=== PATIENT | male | born 1970 | race Caucasian/White ===

== ENCOUNTER 2016-12-03 03:05 | Emergency (ER) | payer SELFPAY ==
[~2016-12-03] VITALS: Ht 182.9 cm; Wt 72.0 kg
[2016-12-03 03:09] VITALS: BP 202/117; PULSE 143; RESP 20; TEMP 98.8; O2SAT 83
[2016-12-03] MEDS ORDERED: SODIUM CHLOR 0.9% 1000 ML INJ 1,000 ML IV ONE (03:17)
--- NOTE | 2016-12-03 03:21 | PD ---
HPI Chief Complaint: OD/ Ingestion Time Seen by Provider: 03:17 Travel History International Travel<30 days: No Contact w/Intl Traveler<30days: No Traveled to known affect area: No History of Present Illness HPI This is a 46-year-old male who presents to the emergency department having been found unresponsive by a friend. When EMS arrived the patient was blue and apneic. He did have a pulse. They started to bag him and administered Narcan at which point the patient regained consciousness and had a GCS of 15. Patient admits to drinking alcohol this evening but denies any drug use. He currently says he feels normal and denies any complaints. PFSH Past Medical History Medical History: Denies Significant Hx Past Surgical History Surgical History: No Previous Surgery Social History Alcohol Use: Yes Tobacco Use: Yes (1 PPD ) Substance Use: No (PT DENIES ) Allergies-Medications (Allergen,Severity, Reaction): Coded Allergies: No Known Allergies (Unverified , 12/03/16) Reported Meds & Prescriptions Reported Meds & Active Scripts Active No Active Prescriptions or Reported Medications Review of Systems ROS Limitations: Intoxication Physical Exam Narrative GENERAL: Smells of alcohol SKIN: Focused skin assessment warm and dry. HEAD: Atraumatic. Normocephalic. EYES: Pupils are dilated, equal and reactive. No injection or drainage. ENT: Moist mucous membranes NECK: Trachea midline. CARDIOVASCULAR: Tachycardic. No murmur appreciated. RESPIRATORY: Clear to auscultation. Breath sounds equal bilaterally. GASTROINTESTINAL: Abdomen soft, non-tender, nondistended. MUSCULOSKELETAL: No obvious deformities. NEUROLOGICAL: Awake and alert. No obvious cranial nerve deficits. Moving all extremities. PSYCHIATRIC: Appropriate mood and affect; insight and judgment normal. Data Data Last Documented VS Vital Signs Date Time Temp Pulse Resp B/P Pulse Ox O2 Delivery O2 Flow Rate FiO2 12/03/16 06:13 99 16 138/73 92 Room Air 12/03/16 03:17 6 12/03/16 03:09 98.8 Orders Electrocardiogram (12/03/16 03:17) Complete Blood Count With Diff (12/03/16 03:17) Comprehensive Metabolic Panel (12/03/16 03:17) Urinalysis - C+S If Indicated (12/03/16 03:17) Chest, Single Ap (12/03/16 03:17) Iv Access Insert/Monitor (12/03/16 03:17) Ecg Monitoring (12/03/16 03:17) Oximetry (12/03/16 03:17) Sodium Chloride 0.9% Flush (Ns Flush) (12/03/16 03:30) Sodium Chlor 0.9% 1000 Ml Inj (Ns 1000 M (12/03/16 03:17) Drug Screen, Random Urine (12/03/16 03:17) Alcohol (Ethanol) (12/03/16 03:17) Salicylates (Aspirin) (12/03/16 03:17) Tylenol (Acetaminophen) (12/03/16 03:17) Labs Laboratory Tests Test 12/03/16 03:25 White Blood Count 6.8 TH/MM3 Red Blood Count 4.94 MIL/MM3 Hemoglobin 17.0 GM/DL Hematocrit 48.3 % Mean Corpuscular Volume 97.8 FL Mean Corpuscular Hemoglobin 34.3 PG Mean Corpuscular Hemoglobin 35.1 % Concent Red Cell Distribution Width 13.8 % Platelet Count 187 TH/MM3 Mean Platelet Volume 7.3 FL Neutrophils (%) (Auto) 54.6 % Lymphocytes (%) (Auto) 35.0 % Monocytes (%) (Auto) 6.1 % Eosinophils (%) (Auto) 1.4 % Basophils (%) (Auto) 2.9 % Neutrophils # (Auto) 3.7 TH/MM3 Lymphocytes # (Auto) 2.4 TH/MM3 Monocytes # (Auto) 0.4 TH/MM3 Eosinophils # (Auto) 0.1 TH/MM3 Basophils # (Auto) 0.2 TH/MM3 CBC Comment DIFF FINAL Differential Comment Sodium Level 141 MEQ/L Potassium Level 3.8 MEQ/L Chloride Level 105 MEQ/L Carbon Dioxide Level 25.3 MEQ/L Anion Gap 11 MEQ/L Blood Urea Nitrogen 7 MG/DL Creatinine 0.94 MG/DL Estimat Glomerular Filtration 86 ML/MIN Rate Random Glucose 100 MG/DL Calcium Level 8.5 MG/DL Total Bilirubin 0.3 MG/DL Aspartate Amino Transf 356 U/L (AST/SGOT) Alanine Aminotransferase 320 U/L (ALT/SGPT) Alkaline Phosphatase 77 U/L Total Protein 8.2 GM/DL Albumin 4.2 GM/DL Salicylates Level 5.1 MG/DL Acetaminophen Level LESS THAN 2.0 MCG/ML Ethyl Alcohol Level 280 MG/DL MDM Medical Decision Making Medical Screen Exam Complete: Yes Emergency Medical Condition: Yes Interpretation(s) Afebrile, tachycardic, hypertensive, hypoxic on arrival No leukocytosis Transaminitis Alcohol level is 280 Chest x-ray: No acute process Differential Diagnosis Opiate intoxication, alcohol intoxication, overdose, aspiration pneumonia Narrative Course This is a 46-year-old male who presents to the emergency department having had an episode of unresponsiveness and respiratory failure witnessed by EMS. He responded to Narcan. I suspect the patient had a recreational opiate overdose. On arrival he was tachycardic and hypertensive with some hypoxia. He significantly improved in his ER stay. After IV hydration his pulse came down and with some pulmonary toilet his oxygen saturation improved to 92-94%. Patient was very eager to go home. He is awake, alert, able to answer questions appropriately and articulate his reasoning. I don't think I can keep him against his will. Patient will be discharged. Diagnosis Primary Impression: Opiate overdose Qualified Code: T40.601A - Opiate overdose, accidental or unintentional, initial encounter Patient Instructions: General Instructions Additional Instructions: Follow up with Anastasia Alexander in regards to psychiatric or substance related issues at: [address] [place] [address] Your liver is tests are abnormal. You should follow-up with a primary care physician regarding this as you could have hepatitis. Med/Other Pt SpecificInfo: No Change to Meds Scripts No Active Prescriptions or Reported Meds Disposition: 01 DISCHARGE HOME Condition: Stable Mindy Perez MD Dec 03, 2016 03:21
[2016-12-03 03:29] VITALS: O2SAT 83
[2016-12-03] MEDS ORDERED: SODIUM CHLORIDE 0.9% FLUSH 10 ML FLUSH IVF PRN (03:30)
[2016-12-03 03:47] LABS: AUTOMATED NEUTROPHIL # 3.7 TH/MM3 (1.8-7.7); BASOPHIL # 0.2 TH/MM3 (0-0.2); BASOPHIL % 2.9 % (0.0-2.0); EOSINOPHIL # 0.1 TH/MM3 (0-0.4); EOSINOPHIL % 1.4 % (0.0-4.0); HEMATOCRIT 48.3 % (39.0-51.0); HEMO FLAGS DIFF FINAL; LYMPHOCYTE # 2.4 TH/MM3 (1.0-4.8); MEAN CELL VOLUME 97.8 FL (80.0-100.0); MEAN CORPUSCULAR HEMOGLOBIN 34.3 PG (27.0-34.0); MEAN CORPUSCULAR HGB CONC 35.1 % (32.0-36.0); MONO % 6.1 % (0.0-8.0); NEUT % 54.6 % (16.0-70.0); PLATELET COUNT 187 TH/MM3 (150-450); RED BLOOD COUNT 4.94 MIL/MM3 (4.50-5.90); RED CELL DISTRIBUTION WIDTH 13.8 % (11.6-17.2); WHITE BLOOD COUNT 6.8 TH/MM3 (4.0-11.0)
--- NOTE | 2016-12-03 04:12 | RADRPT ---
EXAM DATE/TIME: 12/03/2016 03:17 [facility] COMPARISON: No previous studies available for comparison. INDICATIONS : Shortness of breath. MEDICAL HISTORY : None. SURGICAL HISTORY : None. ENCOUNTER: Initial ACUITY: 1 day PAIN SCORE: 0/10 LOCATION: Bilateral chest FINDINGS: The lungs are clear without infiltrate, nodule, or mass. There is no appreciable pleural effusion fo r technique. Heart and mediastinum are unremarkable. CONCLUSION: No acute cardiopulmonary disease. Ricky Mcduffie MD on December 03, 2016 at 4:11 Board Certified Radiologist. This report was verified electronically.
[2016-12-03 04:15] LABS: ACETAMINOPHEN LESS THAN 2.0 MCG/ML (10.0-30.0); ALT (GPT) 320 U/L (12-78); ANION GAP 11 MEQ/L (5-15); AST (GOT) 356 U/L (15-37); BICARBONATE 25.3 MEQ/L (21.0-32.0); BLOOD UREA NITROGEN 7 MG/DL (7-18); CHLORIDE 105 MEQ/L (98-107); GLOMERULAR FILTRATION RATE 86 ML/MIN (>89); POTASSIUM 3.8 MEQ/L (3.5-5.1); SODIUM (NA) 141 MEQ/L (136-145)
[2016-12-03 04:18] LABS: ALKALINE PHOSPHATASE 77 U/L (45-117); TOTAL BILIRUBIN ADULT 0.3 MG/DL (0.2-1.0)
[2016-12-03 05:44] VITALS: BP 198/104; PULSE 94; RESP 16; O2SAT 90
[2016-12-03 06:13] VITALS: BP 138/73; PULSE 99; RESP 16; O2SAT 92
--- NOTE | 2016-12-03 21:32 | EKG ---
Date Performed: 12/03/2016 Time Performed: 03:15:48 PTAGE: 46 years EKG: SINUS TACHYCARDIA BORDERLINE RIGHT AXIS DEVIATION Peaked T waves in lead V3, consider elect rolyte abnormality and Or early injury pattern. Clinical corrolation is suggested. ABNORMAL RHYTHM EC G NO PREVIOUS TRACING DOCTOR: Davey Echeverria Interpretating Date/Time 12/03/2016 21:31:43
== END 2016-12-03 06:23 | disposition home or self-care (01) ==
LOC: NEPE 03:05
DX: T40.601A Poisoning by unspecified narcotics, accidental (unintentional), initial encounter (principal); R00.0 Tachycardia, unspecified; R09.02 Hypoxemia; R94.31 Abnormal electrocardiogram [ECG] [EKG]; R79.89 Other specified abnormal findings of blood chemistry; F17.200 Nicotine dependence, unspecified, uncomplicated
CPT/HCPCS: 71010; 80053; 80307; 85025; 93005; 96360; 99285; J7030

== ENCOUNTER 2017-11-20 00:22 | Emergency (ER) | payer SELFPAY ==
[~2017-11-20] VITALS: Ht 182.9 cm; Wt 72.5 kg
[2017-11-20 00:34] VITALS: BP 157/97; PULSE 112; RESP 15; O2SAT 96
--- NOTE | 2017-11-20 03:31 | PD ---
HPI Chief Complaint: OD/ Ingestion Time Seen by Provider: 03:30 Travel History International Travel<30 days: No Contact w/Intl Traveler<30days: No Traveled to known affect area: No History of Present Illness HPI 47-year-old male presents to the emergency department after ingesting heroin with altered mentation. Patient received Narcan 0.4 mg IV with resumption of mentation and GCS of 15. Patient admits to drinking alcohol. Patient states she has never used heroin before. Denies other ingestants or complaints. [facility] Past Medical History Narrative Medical squamous cell CA; alcohol, tobacco and substance ue; nursing notes reviewed. Cancer: Yes (SQUAMOUS SMALL CELL CARCINOMA) Diabetes: No Diminished Hearing: No Tetanus Vaccination: Unknown Influenza Vaccination: No Past Surgical History Surgical History: No Previous Surgery Social History Alcohol Use: Yes (OCCAS) Tobacco Use: Yes (1.5 PPD ) Substance Use: Yes (HEROIN) Allergies-Medications (Allergen,Severity, Reaction): Coded Allergies: No Known Allergies (Unverified Adverse Reaction, Unknown, 11/20/17) Reported Meds & Prescriptions Reported Meds & Active Scripts Active No Active Prescriptions or Reported Medications Review of Systems Except as stated in HPI: all other systems reviewed are Neg Physical Exam Narrative GENERAL: Well developed well nourished male; gcs 15. SKIN: Warm and dry. HEAD: Atraumatic. Normocephalic. EYES: Pupils equal and round. No scleral icterus. No injection or drainage. ENT: No nasal bleeding or discharge. Mucous membranes pink and moist. NECK: Trachea midline. No JVD. CARDIOVASCULAR: Regular rate and rhythm. RESPIRATORY: No accessory muscle use. Clear to auscultation. Breath sounds equal bilaterally. GASTROINTESTINAL: Abdomen soft, non-tender, nondistended. Hepatic and splenic margins not palpable. MUSCULOSKELETAL: Extremities without clubbing, cyanosis, or edema. No obvious deformities. NEUROLOGICAL: Awake and alert. No obvious cranial nerve deficits. Motor grossly within normal limits. Five out of 5 muscle strength in the arms and legs. Normal speech. PSYCHIATRIC: Appropriate mood and affect; insight and judgment normal. Data Data Last Documented VS Vital Signs Date Time Temp Pulse Resp B/P (MAP) Pulse Ox O2 Delivery O2 Flow Rate FiO2 11/20/17 06:25 11/20/17 04:11 76 18 97 Room Air Orders Orders Complete Blood Count With Diff (11/20/17 01:30) Tylenol (Acetaminophen) (11/20/17 01:30) Alcohol (Ethanol) (11/20/17 01:30) Basic Metabolic Panel (Bmp) (11/20/17 01:30) Salicylates (Aspirin) (11/20/17 01:30) Drug Screen, Random Urine (11/20/17 01:30) Chest, Single Ap (11/20/17 ) Potassium Chloride (Kcl) (11/20/17 04:30) Ed Discharge Order (11/20/17 06:06) Labs Laboratory Tests Test 11/20/17 01:30 11/20/17 04:10 White Blood Count 9.1 TH/MM3 Red Blood Count 4.23 MIL/MM3 Hemoglobin 14.9 GM/DL Hematocrit 43.0 % Mean Corpuscular Volume 101.6 FL Mean Corpuscular Hemoglobin 35.1 PG Mean Corpuscular Hemoglobin Concent 34.6 % Red Cell Distribution Width 13.0 % Platelet Count 175 TH/MM3 Mean Platelet Volume 7.5 FL Neutrophils (%) (Auto) 82.5 % Lymphocytes (%) (Auto) 11.2 % Monocytes (%) (Auto) 5.8 % Eosinophils (%) (Auto) 0.1 % Basophils (%) (Auto) 0.4 % Neutrophils # (Auto) 7.5 TH/MM3 Lymphocytes # (Auto) 1.0 TH/MM3 Monocytes # (Auto) 0.5 TH/MM3 Eosinophils # (Auto) 0.0 TH/MM3 Basophils # (Auto) 0.0 TH/MM3 CBC Comment DIFF FINAL Differential Comment Blood Urea Nitrogen 7 MG/DL Creatinine 0.91 MG/DL Random Glucose 140 MG/DL Calcium Level 7.9 MG/DL Sodium Level 138 MEQ/L Potassium Level 3.3 MEQ/L Chloride Level 101 MEQ/L Carbon Dioxide Level 22.6 MEQ/L Anion Gap 14 MEQ/L Estimat Glomerular Filtration Rate 89 ML/MIN Salicylates Level 3.9 MG/DL Acetaminophen Level LESS THAN 2.0 MCG/ML Ethyl Alcohol Level 89 MG/DL Urine Opiates Screen POS Urine Barbiturates Screen NEG Urine Amphetamines Screen NEG Urine Benzodiazepines Screen NEG Urine Cocaine Screen POS Urine Cannabinoids Screen NEG MDM Medical Decision Making Medical Screen Exam Complete: Yes Emergency Medical Condition: Yes Medical Record Reviewed: Yes Differential Diagnosis heroin overdose alcohol ingestion electrolyte disturbance Narrative Course Patient awake gcs 15 after narcan; aware of plan to observe in the ED and agrees ; basic labs collected Patient remains stable GCS remains 15 @ 0500 patient is stable for discharge after 6 hours of observation Diagnosis Primary Impression: Opiate overdose Referrals: Primary Care Physician call for appointment [facility] for appointment Patient Instructions: General Instructions Additional Instructions: Increase fluid hydration do not drink alcoholic beverages Follow-up with primary care provider and start management Do not use heroin/opiates or other substances Return to the emergency department for any concerns Add potassium containing foods and beverages to dietary and Scripts No Active Prescriptions or Reported Meds Disposition: 01 DISCHARGE HOME Condition: Stable Betty Vazquez MD Nov 20, 2017 03:31
[2017-11-20 03:42] LABS: ACETAMINOPHEN LESS THAN 2.0 MCG/ML (10.0-30.0); BICARBONATE 22.6 MEQ/L (21.0-32.0); BLOOD UREA NITROGEN 7 MG/DL (7-18); CALCIUM 7.9 MG/DL (8.5-10.1); CHLORIDE 101 MEQ/L (98-107); CREATININE 0.91 MG/DL (0.60-1.30); GLOMERULAR FILTRATION RATE 89 ML/MIN (>89); GLUCOSE,RANDOM 140 MG/DL (74-106); SODIUM (NA) 138 MEQ/L (136-145)
--- NOTE | 2017-11-20 04:00 | RADRPT ---
EXAM DATE/TIME: 11/20/2017 03:36 [facility] COMPARISON: CHEST SINGLE AP, December 03, 2016, 3:17. INDICATIONS : Chest pain. MEDICAL HISTORY : Carcinoma, squamous. SURGICAL HISTORY : None. ENCOUNTER: Initial ACUITY: >1 year PAIN SCORE: 6/10 LOCATION: Left chest FINDINGS: A single view of the chest demonstrates the lungs to be symmetrically aerated without evidence of mas s, infiltrate or effusion. The cardiomediastinal contours are unremarkable. Osseous structures are intact. CONCLUSION: No acute disease. Jerry Morrow MD on November 20, 2017 at 3:57 Board Certified Radiologist. This report was verified electronically.
[2017-11-20 04:11] VITALS: BP 121/80; PULSE 76; RESP 18; O2SAT 97
[2017-11-20 04:16] LABS: AUTOMATED NEUTROPHIL # 7.5 TH/MM3 (1.8-7.7); BASOPHIL % 0.4 % (0.0-2.0); EOSINOPHIL % 0.1 % (0.0-4.0); HEMOGLOBIN 14.9 GM/DL (13.0-17.0); LYMPH % 11.2 % (9.0-44.0); MEAN CELL VOLUME 101.6 FL (80.0-100.0); MEAN CORPUSCULAR HEMOGLOBIN 35.1 PG (27.0-34.0); MEAN CORPUSCULAR HGB CONC 34.6 % (32.0-36.0); MEAN PLATELET VOLUME 7.5 FL (7.0-11.0); MONO % 5.8 % (0.0-8.0); MONOCYTE # 0.5 TH/MM3 (0-0.9); NEUT % 82.5 % (16.0-70.0); PLATELET COUNT 175 TH/MM3 (150-450); RED BLOOD COUNT 4.23 MIL/MM3 (4.50-5.90); WHITE BLOOD COUNT 9.1 TH/MM3 (4.0-11.0)
[2017-11-20] MEDS ORDERED: POTASSIUM CHLORIDE 20 MEQ CONTROLLED RELEASE TAB PO ONE (04:30)
== END 2017-11-20 06:26 | disposition home or self-care (01) ==
LOC: NEPC 00:22
DX: T40.601A Poisoning by unspecified narcotics, accidental (unintentional), initial encounter (principal); R41.82 Altered mental status, unspecified; F17.200 Nicotine dependence, unspecified, uncomplicated; Z85.9 Personal history of malignant neoplasm, unspecified
CPT/HCPCS: 51702; 71045; 80048; 80307; 85025